=== PATIENT | female | born 1970 | race Caucasian/White ===

== ENCOUNTER 2016-11-22 18:54 | Observation (INO) | payer BC ==
[2016-11-22] MEDS ORDERED: NS 0.9% 1000 ML* 2,000 ML IV ONE (19:00)
[2016-11-22 19:25] LABS: Hematocrit 36 % (35-47); Hemoglobin 11.9 g/dl (12.0-16.0); Mean Corpuscular HGB Conc 33 g/dl (31-36); Mean Corpuscular Hemoglobin 31 pg (27-31); Mean Corpuscular Volume 94 fL (80-97); Mean Platelet Volume 11 um3 (7.4-10.4); Red Blood Count 3.83 10^6/ul (4.0-5.4); Red Cell Distribution Width 13 % (10.5-15); White Blood Count 8.4 10^3/ul (3.5-10.8)
[2016-11-22 19:40] LABS: Albumin 3.7 g/dL (3.2-5.2); BUN/Creatinine Ratio 18.3 (8-20); Calcium 8.7 mg/dL (8.6-10.3); EGFR African American 96.1 (>60); EGFR Non-African American 74.7 (>60); Globulin 2.3 g/dL (2-4); Potassium 3.7 mmol/L (3.5-5.0); Total Bilirubin 0.9 mg/dL (0.2-1.0)
[2016-11-22 19:42] LABS: Troponin I 0.02 ng/mL (<0.04)
--- NOTE | 2016-11-22 19:55 | RAD ---
HISTORY: Chest pain COMPARISONS: None VIEWS:1: Single frontal portable view of the chest at 7:38 PM FINDINGS: LINES AND TUBES: None. CARDIOMEDIASTINAL SILHOUETTE: The cardiomediastinal silhouette is normal for portable technique. PLEURA: The costophrenic angles are sharp. No pleural abnormalities are noted. LUNG PARENCHYMA: The lungs are clear. ABDOMEN: The upper abdomen is clear. There is no subphrenic gas. BONES AND SOFT TISSUES: No bone or soft tissue abnormalities are noted. IMPRESSION: NO ACTIVE CARDIOPULMONARY DISEASE.
[2016-11-22] MEDS ORDERED: Iohexol 350* (CONTRAST) 500 ML MDV IV ONE (20:42)
[2016-11-22 20:44] LABS: TSH (Thyroid Stimulating Horm) 0.95 mcIU/mL (0.34-5.60)
--- NOTE | 2016-11-22 21:01 | RAD ---
HISTORY: Chest pain, shortness of breath COMPARISONS: None TECHNIQUE: Multiple contiguous axial CT scans were obtained of the chest, abdomen, and pelvis after the administration of intravenous contrast. Coronal and sagittal multiplanar reformations are submitted for review.. 3-D volumetric reconstructions are also submitted of the aorta FINDINGS: CHEST NECK AND THYROID: The lower neck and thyroid are unremarkable. CHEST WALL: There is no lower cervical, axillary, or supraclavicular lymphadenopathy by size criteria. HEART AND PERICARDIUM: The heart is unremarkable. AORTA AND PULMONARY VASCULATURE: There is no aneurysmal dilatation or intimal flap to suggest dissection. There is no pulmonary arterial filling defect MEDIASTINUM: There is no mediastinal lymphadenopathy by size criteria. ISHAAN: There is no hilar lymphadenopathy by size criteria. AIRWAY AND ESOPHAGUS: The airway is unremarkable, without endobronchial filling defect. The esophagus is grossly normal. LUNG PARENCHYMA: The lungs are clear. PLEURA: No pleural abnormalities are noted. BONES AND SOFT TISSUES: No bone or soft tissue abnormalities are noted. ABDOMEN/PELVIS: LIVER: The liver is normal in shape, size, contour, and attenuation. BILE DUCTS: There is no intrahepatic or extrahepatic biliary dilatation. GALLBLADDER: The gallbladder is normal, without pericholecystic inflammatory change. PANCREAS: The pancreas is normal, without mass or ductal dilatation. SPLEEN: Normal in size and appearance. UPPER GI TRACT: Evaluation of the gastrointestinal tract is limited by incomplete gastric distention. The upper GI tract is unremarkable. SMALL BOWEL \T\ MESENTERY: The small bowel is normal in contour, course, and caliber. There is no obstruction or dilatation. COLON: The colon is normal in contour, course, caliber. There is no pericolonic inflammatory change. ADRENALS: Normal bilaterally. KIDNEYS: The kidneys are normal in shape, size, contour, and axis. There is no hydronephrosis or nephrolithiasis. BLADDER: The bladder is smooth in contour. PELVIC ORGANS: The uterus and adnexa are grossly normal for technique. There is a small amount of fluid within the pelvic cul-de-sac. AORTA: There is no aneurysmal dilatation or intimal flap. There is minimal calcific atherosclerotic disease. IVC: Unremarkable LYMPH NODES: There is no lymphadenopathy by size criteria. ABDOMINAL WALL: There is no evidence for abdominal wall hernia. BONES: Degenerative changes are noted L5-S1 OTHER: None IMPRESSION: 1. NO AORTIC AND VISCERAL DILATATION. NO INTIMAL FLAP TO SUGGEST DISSECTION. 2. SMALL AMOUNT OF FLUID WITHIN THE PELVIC CUL-DE-SAC. THIS MAY BE PHYSIOLOGIC WITHIN A REPRODUCTIVE AGE FEMALE
--- NOTE | 2016-11-22 21:03 | ED ---
HPI Chest Pain - HPI Summary HPI Summary: Pt here w/ chest pain x 2 days. Admits she's had this on/off for a while now and didn't get it checked out for fear of finding something bad. Worse past 2 days. Lower central sternal area w/ radiation to Lt chest. Notices most at rest. Lasts seconds to minutes. Sharp sternally. Radiates in Lt chest and between shoulder blades and this feels dull but intense. Nothing alleviates nor exacerbates. Came in today because pain was worse than usual around 18:00 and she had new associated sx of nausea which progressed to dizziness - she sat down and developed SOB then started sweating. Called 911. Currently no pain - reports she'll let me know when the next "wave" hits. Fam h/o Father w/ AAA and CABG, stents - started in 50's and in 70's. GF in 50's from cardiac disease. Pt denies personal h/o cardiac dz, thyroid issues, anemia, diabetes, trauma/ injury to neck/chest. H/o penumonia but not recent cough, fever, chills, fatigue. Admits to increased emotional stress recently and has been trying to clear "bad energy". Does not feel this has been helping. Started smoking again this past week - does not make pain better or worse but she has avoided smoking when pain started. Has reduced food intake past few weeks d/t schedule. Denies pain worse/ better w / or w/o eating. BM's have been normal. H/o hiatal hernia - this does not feel the same. - History of Current Complaint Chief Complaint: EDChestPainROMI Time Seen by Provider: 11/22/16 19:49 Hx Obtained From: Patient - Allergy/Home Medications Allergies/Adverse Reactions: Allergies Allergy/AdvReac Type Severity Reaction Status Date / Time Aspirin [ASA] Allergy Hives Verified 11/22/16 23:27 Cefaclor [From Ceclor] Allergy Stomach Verified 11/22/16 23:27 Cramps Erythromycin Allergy Stomach Verified 11/22/16 23:27 Cramps Penicillins [PCN] Allergy Hives Verified 11/22/16 23:27 Tetracyclines & Related Allergy Stomach Verified 11/22/16 23:27 Cramps PMH/Surg Hx/FS Hx/Imm Hx Previously Healthy: Yes Endocrine/Hematology History: Denies: Hx Anticoagulant Therapy, Hx Blood Disorders, Hx Diabetes, Hx Thyroid Disease, Hx Anemia, Autoimmune Disease Cardiovascular History: Denies: Hx Aneurysm, Hx Deep Vein Thrombosis, Hx Embolism, Hx Hypotension, Hx Hypertension, Hx Myocardial Infarction Respiratory History: Reports: Hx Pneumonia Denies: Hx Asthma, Hx Pulmonary Embolism, Hx Seasonal Allergies GI History: Reports: Hx Hiatal Hernia Denies: Hx Crohn's Disease, Hx Gall Bladder Disease, Hx Gastroesophageal Reflux Disease, Hx Gastrointestinal Bleed, Hx Ulcer - Surgical History Surgery Procedure, Year, and Place: Back surgery Infectious Disease History: No Infectious Disease History: Denies: Traveled Outside the [place] in Last 30 Days - Family History Known Family History: Positive: Cardiac Disease - Father - AAA, CABG, stents - started in 50's; GF - in 50's CVD - Social History Hx Substance Use: No Substance Use Type: Reports: None, Cocaine. Denies: Excessive Caffeine Hx Tobacco Use: Yes - Restarted 1 week ago Review of Systems Constitutional: Negative Negative: Fever, Chills Negative: Sore Throat, Ear Ache, Nasal Discharge Positive: Chest Pain - see HPI Positive: Shortness Of Breath - see HPI - not currently. Negative: Cough Gastrointestinal: Negative Negative: Abdominal Pain, Vomiting, Diarrhea, Nausea Positive: no symptoms reported Negative: Arthralgia, Myalgia Negative: Rash Neurological: Negative Negative: Headache, Weakness, Paresthesia Positive: Anxious - stress as in HPI All Other Systems Reviewed And Are Negative: Yes Physical Exam Triage Information Reviewed: Yes Vital Signs On Initial Exam: Initial Vitals Temp Pulse Resp BP Pulse Ox 97.7 F 78 16 93/68 99 11/22/16 19:00 11/22/16 19:00 11/22/16 19:00 11/22/16 19:00 11/22/16 19:00 Vital Signs Reviewed: Yes Appearance: Positive: Well-Appearing - appears concerned, No Pain Distress, Well -Nourished Skin: Positive: Warm, Dry Head/Face: Positive: Normal Head/Face Inspection Eyes: Positive: Normal, EOMI, [place], Conjunctiva Clear - pink, Other: - possibly w/ mild icteric sclera ENT: Positive: Normal ENT inspection, Hearing grossly normal, Pharynx normal - mucosa pink/moist, TMs normal Neck: Positive: Supple, Nontender, No Lymphadenopathy Respiratory/Lung Sounds: Positive: Clear to Auscultation, Breath Sounds Present. Negative: Rales, Rhonchi, Wheezes Cardiovascular: Positive: Normal, RRR, Pulses are Symmetrical in both Upper and Lower Extremities, Other - no pulsatile mass in abdomen, S1, S2. Negative: Murmur, Rub, Leg Edema Left, Leg Edema Right - (-) Madalyn's B/L Abdomen Description: Positive: No Organomegaly, Soft, Other: - mild epigastric TTP Bowel Sounds: Positive: Present Musculoskeletal: Positive: Normal, Strength/ROM Intact - chest and thoracic region NTTP Neurological: Positive: Normal, Sensory/Motor Intact, Alert, Oriented to Person Place, Time, CN Intact II-III, Reflexes Intact Psychiatric: Positive: Anxious Diagnostics - Vital Signs Vital Signs Temp Pulse Resp BP Pulse Ox 11/22/16 20:22 100 11/22/16 19:00 97.7 F 78 16 93/68 99 - Laboratory Lab Results: Lab Results 11/22/16 11/22/16 11/22/16 Range/Units 19:10 19:10 19:10 WBC 8.4 (3.5-10.8) 10^3/ul RBC 3.83 L (4.0-5.4) 10^6/ul Hgb 11.9 L (12.0-16.0) g/dl Hct 36 (35-47) % MCV 94 (80-97) fL MCH 31 (27-31) pg MCHC 33 (31-36) g/dl RDW 13 (10.5-15) % Plt Count 123 L (150-450) 10^3/ul MPV 11 H (7.4-10.4) um3 Neut % (Auto) 61.6 (38-83) % Lymph % (Auto) 29.2 (25-47) % Casey % (Auto) 7.2 (1-9) % Eos % (Auto) 1.4 (0-6) % Baso % (Auto) 0.6 (0-2) % Absolute Neuts (auto) 5.2 (1.5-7.7) 10^3/ul Absolute Lymphs (auto) 2.5 (1.0-4.8) 10^3/ul Absolute Monos (auto) 0.6 (0-0.8) 10^3/ul Absolute Eos (auto) 0.1 (0-0.6) 10^3/ul Absolute Basos (auto) 0 (0-0.2) 10^3/ul Absolute Nucleated RBC 0 10^3/ul Nucleated RBC % 0 D-Dimer, Quantitative (Less Than 230) ng/mL Sodium 134 (133-145) mmol/L Potassium 3.7 (3.5-5.0) mmol/L Chloride 107 (101-111) mmol/L Carbon Dioxide 23 (22-32) mmol/L Anion Gap 4 (2-11) mmol/L BUN 15 (6-24) mg/dL Creatinine 0.82 (0.51-0.95) mg/dL Est GFR ( Amer) 96.1 (>60) Est GFR (Non-Af Amer) 74.7 (>60) BUN/Creatinine Ratio 18.3 (8-20) Glucose 108 H (70-100) mg/dL Lactic Acid 0.9 (0.5-2.0) mmol/L Calcium 8.7 (8.6-10.3) mg/dL Total Bilirubin 0.90 (0.2-1.0) mg/dL AST 14 (13-39) U/L ALT 17 (7-52) U/L Alkaline Phosphatase 26 L (34-104) U/L Troponin I 0.02 (<0.04) ng/mL B-Natriuretic Peptide ( - 100) pg/mL Total Protein 6.0 L (6.4-8.9) g/dL Albumin 3.7 (3.2-5.2) g/dL Globulin 2.3 (2-4) g/dL Albumin/Globulin Ratio 1.6 (1-3) TSH 0.95 (0.34-5.60) mcIU/mL 11/22/16 11/22/16 Range/Units 19:10 19:10 WBC (3.5-10.8) 10^3/ul RBC (4.0-5.4) 10^6/ul Hgb (12.0-16.0) g/dl Hct (35-47) % MCV (80-97) fL MCH (27-31) pg MCHC (31-36) g/dl RDW (10.5-15) % Plt Count (150-450) 10^3/ul MPV (7.4-10.4) um3 Neut % (Auto) (38-83) % Lymph % (Auto) (25-47) % Casey % (Auto) (1-9) % Eos % (Auto) (0-6) % Baso % (Auto) (0-2) % Absolute Neuts (auto) (1.5-7.7) 10^3/ul Absolute Lymphs (auto) (1.0-4.8) 10^3/ul Absolute Monos (auto) (0-0.8) 10^3/ul Absolute Eos (auto) (0-0.6) 10^3/ul Absolute Basos (auto) (0-0.2) 10^3/ul Absolute Nucleated RBC 10^3/ul Nucleated RBC % D-Dimer, Quantitative < 200 (Less Than 230) ng/mL Sodium (133-145) mmol/L Potassium (3.5-5.0) mmol/L Chloride (101-111) mmol/L Carbon Dioxide (22-32) mmol/L Anion Gap (2-11) mmol/L BUN (6-24) mg/dL Creatinine (0.51-0.95) mg/dL Est GFR ( Amer) (>60) Est GFR (Non-Af Amer) (>60) BUN/Creatinine Ratio (8-20) Glucose (70-100) mg/dL Lactic Acid (0.5-2.0) mmol/L Calcium (8.6-10.3) mg/dL Total Bilirubin (0.2-1.0) mg/dL AST (13-39) U/L ALT (7-52) U/L Alkaline Phosphatase (34-104) U/L Troponin I (<0.04) ng/mL B-Natriuretic Peptide 26 ( - 100) pg/mL Total Protein (6.4-8.9) g/dL Albumin (3.2-5.2) g/dL Globulin (2-4) g/dL Albumin/Globulin Ratio (1-3) TSH (0.34-5.60) mcIU/mL Result Diagrams: 11/22/16 19:10 11/22/16 19:10 Lab Statement: Any lab studies that have been ordered have been reviewed, and results considered in the medical decision making process. Chest Pain Course/Dx - Course Course Of Treatment: Pt presents w/ acute on chronic chest pain however today much worse and w/ new associated sx of nausea, dizziness, sweating and pain through to back between shoulder blades. She is allergic to ASA so this was not ordered upon arrival - she also notes no pain upon collection of HPI and oxygenating well. There was concern for PE w/ return to smoking in past week - D -dimer negative. Aorta imaged and w/o dissection or anuerysm (ordered d/t family h/o - see chart for details). CXR unremarkable. Labs are also WNL except for low Alk Phos and protein which correlate w/ poor nutritional intake which she noted during HPI. At this point, offered GI cocktail while waiting for 3rd trop as this could be GI pathology in nature. She agreed and admits she was hungry and tired so sandwich also provided. Reports "feeling better" and resting after this however 3rd troponin is 0.06 (1st 0.02, 2nd 0.03). She is quite concerned that she had an [facility] today and agrees to further observation for cardiac pathology. Discussed w/ Dr. Sue who will admit. - Diagnoses Provider Diagnoses: Chest pain, Elevated troponin level
[2016-11-23] MEDS ORDERED: Lidocaine 2% VISCOUS* 15 ML UDC PO ONE (00:23)
[2016-11-23] MEDS ORDERED: Al Hydrox/Mg Hydrox/Simet LIQ* 30 ML UDC PO ONE (00:23)
[2016-11-23 05:25] LABS: Cholesterol 109 mg/dL; HDL Cholesterol 24.9 mg/dL; LDL Cholesterol 67 mg/dL; Triglycerides 85 mg/dL
[2016-11-23 05:33] LABS: Troponin I 0.06 ng/mL (<0.04)
[2016-11-23] MEDS: Heparin VIAL(*) 5000 UNITS/ML VIAL (FIVE THOUSAND) SUBCUT SCH ×3 (05:43→20:25)
[2016-11-23 07:55] LABS: C Reactive Protein < 1.00 mg/L (< 5.00)
[2016-11-23 08:22] LABS: Hematocrit 36 % (35-47); Mean Corpuscular HGB Conc 33 g/dl (31-36); Mean Corpuscular Hemoglobin 32 pg (27-31); Mean Corpuscular Volume 95 fL (80-97); Mean Platelet Volume 11 um3 (7.4-10.4); Red Blood Count 3.77 10^6/ul (4.0-5.4); Red Cell Distribution Width 13 % (10.5-15); White Blood Count 9.1 10^3/ul (3.5-10.8)
[2016-11-23 08:42] LABS: BUN/Creatinine Ratio 15.8 (8-20); Calcium 8.7 mg/dL (8.6-10.3); EGFR African American 104.9 (>60); EGFR Non-African American 81.6 (>60)
[2016-11-23 08:49] LABS: Troponin I 0.07 ng/mL (<0.04)
--- NOTE | 2016-11-23 09:29 | PN ---
Subjective Date of Service: 11/23/16 Interval History: Pt had been having CP for several days, sometimes it would occur with exercise, but also when pt was ot ambulating. not related o meals. sharp, midsternal, no alleviating factors. Before pt came in to ED she had an episode of CP associated with nausea, chills, sweats, near syncope. Strong Fhx oc CAD on father's side Smokes 1 PPD Intentional wt loss at 15lbs. Lack of appetite recently Objective Active Medications: Heparin Sodium (Porcine) (Heparin Vial(*)) 5,000 units SUBCUT Q8HR BUTCH Last Admin: 11/23/16 05:43 Dose: Not Given Sodium Chloride (Ns 0.9% 1000 Ml*) 1,000 mls @ 125 mls/hr IV PER RATE BUTCH Lactated Ringer's (Lactated Ringers 1000 Ml Bag*) 1,000 mls @ 0 mls/hr IV WIDE OPEN BUTCH PRN Reason: Wide Open Stop: 11/23/16 23:59 Last Admin: 11/23/16 08:01 Dose: 999 mls/hr Vital Signs 11/23/16 11/23/16 11/23/16 03:15 03:30 04:00 Temperature Pulse Rate 65 57 59 Respiratory 15 19 19 Rate Blood Pressure 89/54 87/51 88/50 (mmHg) O2 Sat by Pulse 98 97 96 Oximetry 11/23/16 11/23/16 04:09 04:14 Temperature 98.6 F 98.1 F Pulse Rate 55 Respiratory 16 Rate Blood Pressure 84/54 (mmHg) O2 Sat by Pulse 98 Oximetry Oxygen Devices in Use Now: None Appearance: 46 yo f in nAD, AAOx3 Eyes: No Scleral Icterus, PERRLA Ears/Nose/Mouth/Throat: NL Teeth, Lips, Gums, Mucous Membranes Moist Neck: NL Appearance and Movements; NL JVP Respiratory: Symmetrical Chest Expansion and Respiratory Effort, Clear to Auscultation Cardiovascular: NL Sounds; No Murmurs; No JVD, RRR Abdominal: NL Sounds; No Tenderness; No Distention Lymphatic: No Cervical Adenopathy Extremities: No Edema, No Clubbing, Cyanosis Skin: No Rash or Ulcers, No Nodules or Sclerosis Neurological: Alert and Oriented x 3, NL Muscle Strength and Tone Result Diagrams: 11/23/16 08:03 11/23/16 08:03 Additional Lab and Data: Lab Results 11/22/16 11/22/16 11/22/16 Range/Units 19:10 19:10 19:10 WBC 8.4 (3.5-10.8) 10^3/ul RBC 3.83 L (4.0-5.4) 10^6/ul Hgb 11.9 L (12.0-16.0) g/dl Hct 36 (35-47) % MCV 94 (80-97) fL MCH 31 (27-31) pg MCHC 33 (31-36) g/dl RDW 13 (10.5-15) % Plt Count 123 L (150-450) 10^3/ul MPV 11 H (7.4-10.4) um3 Neut % (Auto) 61.6 (38-83) % Lymph % (Auto) 29.2 (25-47) % [place] % (Auto) 7.2 (1-9) % Eos % (Auto) 1.4 (0-6) % Baso % (Auto) 0.6 (0-2) % Absolute Neuts (auto) 5.2 (1.5-7.7) 10^3/ul Absolute Lymphs (auto) 2.5 (1.0-4.8) 10^3/ul Absolute Monos (auto) 0.6 (0-0.8) 10^3/ul Absolute Eos (auto) 0.1 (0-0.6) 10^3/ul Absolute Basos (auto) 0 (0-0.2) 10^3/ul Absolute Nucleated RBC 0 10^3/ul Nucleated RBC % 0 D-Dimer, Quantitative (Less Than 230) ng/mL Sodium 134 (133-145) mmol/L Potassium 3.7 (3.5-5.0) mmol/L Chloride 107 (101-111) mmol/L Carbon Dioxide 23 (22-32) mmol/L Anion Gap 4 (2-11) mmol/L BUN 15 (6-24) mg/dL Creatinine 0.82 (0.51-0.95) mg/dL Est GFR ( Amer) 96.1 (>60) Est GFR (Non-Af Amer) 74.7 (>60) BUN/Creatinine Ratio 18.3 (8-20) Glucose 108 H (70-100) mg/dL Lactic Acid 0.9 (0.5-2.0) mmol/L Calcium 8.7 (8.6-10.3) mg/dL Total Bilirubin 0.90 (0.2-1.0) mg/dL AST 14 (13-39) U/L ALT 17 (7-52) U/L Alkaline Phosphatase 26 L (34-104) U/L Troponin I 0.02 (<0.04) ng/mL B-Natriuretic Peptide ( - 100) pg/mL Total Protein 6.0 L (6.4-8.9) g/dL Albumin 3.7 (3.2-5.2) g/dL Globulin 2.3 (2-4) g/dL Albumin/Globulin Ratio 1.6 (1-3) TSH 0.95 (0.34-5.60) mcIU/mL 11/22/16 11/22/16 Range/Units 19:10 19:10 WBC (3.5-10.8) 10^3/ul RBC (4.0-5.4) 10^6/ul Hgb (12.0-16.0) g/dl Hct (35-47) % MCV (80-97) fL MCH (27-31) pg MCHC (31-36) g/dl RDW (10.5-15) % Plt Count (150-450) 10^3/ul MPV (7.4-10.4) um3 Neut % (Auto) (38-83) % Lymph % (Auto) (25-47) % [place] % (Auto) (1-9) % Eos % (Auto) (0-6) % Baso % (Auto) (0-2) % Absolute Neuts (auto) (1.5-7.7) 10^3/ul Absolute Lymphs (auto) (1.0-4.8) 10^3/ul Absolute Monos (auto) (0-0.8) 10^3/ul Absolute Eos (auto) (0-0.6) 10^3/ul Absolute Basos (auto) (0-0.2) 10^3/ul Absolute Nucleated RBC 10^3/ul Nucleated RBC % D-Dimer, Quantitative < 200 (Less Than 230) ng/mL Sodium (133-145) mmol/L Potassium (3.5-5.0) mmol/L Chloride (101-111) mmol/L Carbon Dioxide (22-32) mmol/L Anion Gap (2-11) mmol/L BUN (6-24) mg/dL Creatinine (0.51-0.95) mg/dL Est GFR ( Amer) (>60) Est GFR (Non-Af Amer) (>60) BUN/Creatinine Ratio (8-20) Glucose (70-100) mg/dL Lactic Acid (0.5-2.0) mmol/L Calcium (8.6-10.3) mg/dL Total Bilirubin (0.2-1.0) mg/dL AST (13-39) U/L ALT (7-52) U/L Alkaline Phosphatase (34-104) U/L Troponin I (<0.04) ng/mL B-Natriuretic Peptide 26 ( - 100) pg/mL Total Protein (6.4-8.9) g/dL Albumin (3.2-5.2) g/dL Globulin (2-4) g/dL Albumin/Globulin Ratio (1-3) TSH (0.34-5.60) mcIU/mL Assess/Plan/Problems-Billing Assessment: 46 yo F with no PMHx with CP, near syncope, hypotension - Patient Problems (1) Chest pain Comment: troponin 0.07. CT shows no evidence of PE. Nonspecific complaints appear to be more GI related. Will start Prilosec. Due to elevated troponis will get stress test in AM Cont IVF for hypotension, get UA to r/o UTI (2) DVT prophylaxis Comment: HSQ Status and Disposition: OBV
[2016-11-23] MEDS: NS 0.9% 1000 ML* 1,000 ML IV SCH ×2 (09:33→19:21)
[2016-11-23] MEDS: Omeprazole CAP* 20 MG PO SCH ×2 (09:53→16:30)
[2016-11-23] MEDS ORDERED: Acetaminophen TAB* 325 MG PO PRN (10:28)
[2016-11-23] MEDS ORDERED: Morphine INJ* 2 MG/ML 1 ML SYRINGE IV PRN (10:28)
--- NOTE | 2016-11-23 11:25 | ECHO ---
Patient: JAYLYN DIANE [facility] Rec#: [id number] : 1970 Date: 11/23/2016 Age: 46y Height: 165 cm / 65.0 in Weight: 61 kg / 134.4 lbs Sex: F BSA: 1.7 Room#: [facility] Admit Date#: 11/23/2016 Type: Inpatient Referring: Patrick Sue MD Reading: Jonathan Ritchie MD Risk Management Specialist: Fariba Castanon RN RDCS Transthoracic Echocardiogram Indication: Chest pain, hypotension BP: 84/54 HR: 52 Rhythm: Bradycardia Findings History: Smoker, family history of CAD Technical Comments: The study quality is fair. The study is technically limited due to the patient's smoking history. Completed at 1045. Left Ventricle: The left ventricular chamber size is normal. Global left ventricular wall motion and contractility are within normal limits. There is normal left ventricular systolic function. The estimated ejection fraction is 50-55%. Normal left ventricular diastolic filling is observed. Left Atrium: The left atrial chamber size is normal. Right Ventricle: The right ventricular cavity size is normal. The right ventricular global systolic function is low normal. Right Atrium: The right atrial cavity size is normal. Aortic Valve: The aortic valve is trileaflet. The aortic valve leaflets are mildly thickened. There is a trace of aortic regurgitation. There is no evidence of aortic stenosis. Mitral Valve: The mitral valve leaflets are mildly thickened. There is trace to mild mitral regurgitation. There is no evidence of mitral stenosis. Tricuspid Valve: The tricuspid valve leaflets are normal. There is trace to mild tricuspid regurgitation. Unable to estimate the right ventricular systolic pressure. Pulmonic Valve: The pulmonic valve appears normal. There is mild pulmonic regurgitation. Pericardium: There is no significant pericardial effusion. Aorta: There is no dilatation of the ascending aorta. There is no dilatation of the aortic arch. There is no dilation of the aortic root. Pulmonary Artery: The main pulmonary artery appears normal. Venous: The inferior vena cava is dilated. There is less than 50% respiratory change in the inferior vena cava dimension. Conclusions Global left ventricular wall motion and contractility are within normal limits. There is normal left ventricular systolic function. The estimated ejection fraction is 50-55%. Normal left ventricular diastolic filling is observed. There is a trace of aortic regurgitation. There is trace to mild mitral regurgitation. There is trace to mild tricuspid regurgitation. Unable to estimate the right ventricular systolic pressure. There is no significant pericardial effusion. Measurements Name Value Normal Range RVIDd (AP) 2D 2.2 cm (0.9 - 2.6) RVDdMajor (2D) 3.6 cm (2.2 - 4.4) RAd ISD 4CH 3.8 cm (3.4 - 4.9) RA (A4C)W 3.5 cm (2.9 - 4.6) IVSd (2D) 0.8 cm (0.6 - 1) LVPWd (2D) 0.8 cm (0.6 - 1) LVIDd (2D) 4.6 cm (3.6 - 5.4) LVIDs (2D) 2.9 cm - LV FS (2D) 37 % (25 - 45) Aortic Annulus 2.1 cm (1.4 - 2.6) Ao root diameter (2D) 2.9 cm (2.1 - 3.5) Ascending Ao 3.1 cm (2.1 - 3.4) Aortic arch 2.7 cm (1.8 - 3.4) LA dimension (AP) 2D 2.9 cm (2.3 - 3.8) LAd ISD 4CH 4.1 cm (2.9 - 5.3) LA ISD 4CH W 3.8 cm (2.5 - 4.5) Name Value Normal Range LA ESV SP 4CH (A/L) 46 ml - LA ESV SP 2CH (A/L) 37 ml - LA ESV BP (A/L) 42 ml - LA ESV BP (A/L) index 25 ml/m2 - LA ESV SP 4CH (MOD) 38 ml - LA ESV SP 2CH (MOD) 33 ml - Name Value Normal Range MV E-wave Vmax 0.95 m/sec - MV deceleration time 222 msec - MV A-wave Vmax 0.88 m/sec - MV E:A ratio 1.1 ratio - LV septal e' Vmax 0.15 m/sec - LV lateral e' Vmax 0.13 m/sec - LV E:e' septal ratio 6.3 ratio - LV E:e' lateral ratio 7.3 ratio - Name Value Normal Range AV Vmax 1.2 m/sec - AV VTI 26.4 cm - AV peak gradient 5 mmHg - AV mean gradient 3 mmHg - LVOT Vmax 1.2 m/sec - LVOT VTI 27 cm - LVOT peak gradient 5 mmHg - LVOT mean gradient 3 mmHg - ENRIKE Vmax 0.93 m/sec - Name Value Normal Range IVC diameter 2.3 cm - Name Value Normal Range PV Vmax 0.9 m/sec -
[2016-11-23 11:46] LABS: Urine Bilirubin Negative (Negative); Urine Glucose Negative (Negative); Urine Nitrite Negative (Negative)
--- NOTE | 2016-11-23 13:57 | HP ---
CC: Dr. James Oquendo* HISTORY AND PHYSICAL: DATE OF ADMISSION: 11/23/16 PRIMARY CARE PHYSICIAN: Dr. James Oquendo, [place]. CHIEF COMPLAINT: Chest pain. HISTORY OF PRESENT ILLNESS: The patient is a 46-year-old woman who states that about 6 p.m. today she started getting significant nausea; it was severe. She drank some water hoping it would go away, but it did not help. Then she started feeling dizzy and it started to scare her. She was more lightheaded. She then started sweating significantly. Then she thought she could not breathe , with tightness around her neck going to her right jaw. She called 911. She feels better at this time. At its worse, it was a pressure like pain that was 9 /10 in severity. PAST MEDICAL HISTORY: She has no significant past medical history. MEDICATIONS: She is on no medications. ALLERGIES: She is allergic to CECLOR, ERYTHROMYCIN, TETRACYCLINE, PENICILLIN, and ASPIRIN. FAMILY HISTORY: Mother is 74, alive and well. Father at 70 of AAA and he also had a 2-vessel CABG in his early 50s. SOCIAL HISTORY: She quit tobacco 2 months back. She smoked a pack per day about 32 years. No alcohol or recreational drug use. She is an addiction counselor. She is not . She has two children. Her mother, Ellie Diaz, is her healthcare proxy. REVIEW OF SYSTEMS: A 14-point review of systems was completed with the patient. All pertinent positives and negatives are in the history of present illness, otherwise it is negative. PHYSICAL EXAMINATION GENERAL: A pleasant woman, lying in bed, in no acute distress. VITAL SIGNS: Blood pressure 87/51, pulse ox 97%, respiratory rate 19 breaths per minute, heart rate 67 beats per minute, temperature 97.7 degrees. HEENT: Normocephalic and atraumatic. Pupils are equal, round, and reactive to light. Moist mucous membranes. NECK: Supple. No JVD, bruits, palpable thyroid or lymphadenopathy. CHEST: Clear to auscultation and percussion bilaterally. CARDIOVASCULAR: S1, S2 appreciated. ABDOMEN: Positive bowel sounds in all 4 quadrants. Soft, nontender, and nondistended. EXTREMITIES: No cyanosis, clubbing, or edema. +2 peripheral pulses bilaterally. NEUROLOGIC: Alert and oriented x3. Moves all extremities. SKIN: No rashes or abnormalities. LABORATORY DATA: Her white count is 8.4, hemoglobin 11.9, hematocrit is 36, her platelet count is 123. Her sodium is 134, potassium 3.7, chloride 107, CO2 of 23, BUN 15, creatinine 0.82, glucose is 108. First troponin 0.02, second 0.03, third 0.06. D-dimer is less than 200. CTA of her chest, abdomen, and pelvis shows, impression: No dilation. No intimal flap to suggest dissection. Small amount of fluid in the pelvic cul- de- sac, this may be physiological in a reproductive age female. Chest x-ray was interpreted as no active cardiopulmonary disease. EKG shows normal sinus rhythm at 74 beats per minute, normal axis, incomplete right bundle branch block, no acute ST-T wave changes. ASSESSMENT AND PLAN: 1. Chest pain: She has a relatively good , although it was not brought on by exertion and I doubt she has unstable angina. She said she has had chest pain in relation to anxiety before, but this was not likely since this was very different. Her troponins have bumped a little bit, but I am not that impressed. I will continue to cycle her troponins and I will get a transthoracic echo in the morning. Cardiology consult may be needed if she continues to show elevation of her troponins. I will also check a lipid profile in the morning. Obviously, she will be on telemetry. 2. FEN: N.p.o. in case if a procedure is necessary in the morning. 3. DVT prophylaxis: Heparin subcu. Her platelets are slightly slightly low, but I think she can tolerate the heparin. 4. The patient is a full code. TIME SPENT: Over 75 minutes were spent on this H and P, more than 40 minutes of which were spent in direct [id number] contact with the patient in evaluation, physical exam, counseling, and coordination of care. [id number]/[facility] #: [id number] BEATA
[2016-11-23] MEDS ORDERED: Al Hydrox/Mg Hydrox/Simet LIQ* 30 ML UDC PO PRN (14:59)
[2016-11-23] MEDS ORDERED: Temazepam CAP* 15 MG PO PRN (21:00)
[2016-11-24] MEDS: NS 0.9% 1000 ML* 1,000 ML IV SCH (03:19)
[2016-11-24] MEDS: Heparin VIAL(*) 5000 UNITS/ML VIAL (FIVE THOUSAND) SUBCUT SCH (04:05)
[2016-11-24 08:44] VITALS: BP 91/62
[2016-11-24] MEDS: Omeprazole CAP* 20 MG PO SCH (08:58)
--- NOTE | 2016-11-24 13:45 | RAD ---
HISTORY: Chest pain COMPARISONS: None TECHNIQUE: A 1 day stress/rest myocardial perfusion study was performed, with exercise stress. The exercise portion was performed using the Zechariah protocol, for a total METs of 12.8. The stress portion was monitored by Dr. Ritchie. Gated SPECT imaging was performed, with CT-based attenuation correction DOSE: Stress: Technetium 99m tetrofosmin, 25.97 millicuries, injected at 12:40 PM on November 24, 2016 Rest: Technetium 99m tetrofosmin, 10.58 millicuries, injected at 9:40 AM on November 24, 2016 Pharmacologic agent: None FINDINGS: CARDIAC MONITORING: Peak heart rate of 155 bpm, 90% of predicted. No EKG changes of ischemia. EF: 62 % TID: 1.11 MOTION: Normal motion, with normal wall thickening. PERFUSION: There are small defects of the anterior wall that resolved with attenuation correction and are likely artifactual. No definite fixed or reversible perfusion defects. OTHER: None IMPRESSION: NO DEFINITE FIXED OR REVERSIBLE PERFUSION DEFECTS. ASSESSMENT: LOW RISK. Based on imaging criteria from ACC/AHA 2002. Guideline Update for the Management of Patient's with Chronic Stable Angina, table 23. Noninvasive Risk Stratification.
--- NOTE | 2016-11-25 06:42 | DS ---
CC: Dr. Colindres * DISCHARGE SUMMARY: DATE OF ADMISSION: 11/23/16 DATE OF DISCHARGE: 11/24/16 PRIMARY CARE PROVIDER: Dr. Colindres. DISCHARGE DIAGNOSIS: Chest pain, possibly GI related, with low probability cardiac stress test documented on 11/24/16. SECONDARY DIAGNOSIS: No significant past medical history. MEDICATIONS ON DISCHARGE: None. The patient is recommended to use Prilosec over the counter as needed. She was not interested in receiving prescription for it. LABORATORY DATA AND STUDIES PERFORMED DURING THE HOSPITAL STAY: Include: 11/23; white blood cell count of 9.1, hemoglobin of 12.0, hematocrit of 36, and platelets of 138. D-dimer at admission was below 200. The patient's troponins had been throughout her hospital stay between 0.06 and 0.07. Sodium of 138, potassium 4.0, chloride 110, carbon dioxide 23, BUN 12, creatinine 0.76. Lipid profile documented on 11/23/16 showed triglycerides of 85, cholesterol total of 109, LDL of 67, and HDL of 24. The patient's lipase was 32 and TSH was 0.95. Urinalysis was unremarkable at admission. Transthoracic echocardiogram performed on 11/23/16 showed EF of 50% to 55% with global left ventricular wall motion and contractility within normal limits. There was [id number] mitral regurgitation and tricuspid regurgitation. There is no significant pericardial effusion. The patient's C-reactive protein was noted on 11/23/16 to be below 1. Cardiac stress test documented on 11/24/16. Impression: "Low risk". There were no definite fixed or reversible perfusion defects. an EF of 62%. Also noted to have small defects of the anterior wall that resolved with attenuation correction and likely artifactual. No definite fixed or reversible perfusion defects. HOSPITALIZATION COURSE: Jenny Diaz is a 46-year-old female who presented to the hospital who had nonspecific complaints of chest pain that had been ongoing for a couple of days prior to her admission. The patient also had an episode of nausea, diaphoresis, and what appeared to be near syncope. She complained of chest pressure at 9/10 in severity. She presented to the ED for evaluation. Her EKG was unremarkable. Her troponin was 0.03 at presentation, but it continued to be in the range of 0.05 to 0.07. With that, she continued to be observed on telemetry monitored bed and noted to have no arrhythmias. A cardiac stress test was documented at low probability on 11/24/16. Also transthoracic echocardiogram showed no evidence of wall motion abnormality. Low C-reactive protein made possibility of pericarditis unlikely. The patient also had a CT angiogram of her abdomen and pelvis obtained on admission that showed no aortic or visceral dilatation and no intimal flap _ dissection. There was small amount of fluid within the pelvic cul-de-sac that may have been physiologic within the reproductive age female. By the time of discharge, the patient's pain resolved. I suggested it is possibly related to gastritis. The patient has had history of recent stress at home and not eating well. She also stated that she lost intentionally herself 15 pounds. Prilosec was recommended and the patient stated that she is going to use it over the counter as needed. She declined a prescription. At discharge, the patient was recommended to follow up with her primary care provider within the next couple of weeks. [id number]/[facility] #: [id number] BEATA
== END 2016-11-24 15:30 | disposition home or self-care (01) ==
LOC: ED 18:54 → MEDTELE 11-23 03:11
PROVIDERS: ADMIT Internal Medicine; ATTEND Internal Medicine
DX: R07.9 Chest pain, unspecified (principal); Z88.1 Allergy status to other antibiotic agents; Z88.6 Allergy status to analgesic agent; Z88.0 Allergy status to penicillin; Z87.891 Personal history of nicotine dependence
CPT/HCPCS: 36415; 71010; 71275; 74174; 78452; 80048; 80053; 80061; 81003; 83605; 83690; 83880; 84443; 84484; 85025; 85379; 86140; 93005; 93017; 93306; 96365; 99285; A9270-GY; A9502; G0378; J1644; Q9967